=== PATIENT | female | born 1945 | race African-American/Black ===

== ENCOUNTER 2022-11-24 12:34 | Inpatient (IN) | payer BC, OTHER ==
[~2022-11-24] VITALS: Ht 160 cm; Wt 78.5 kg
[2022-11-24 15:41] LABS: BASOPHILS % 1.4 % (0.0-2.0); EOSINOPHILS % 2.9 % (0.0-5.0); HEMATOCRIT. 32.5 % (36.0-48.0); HEMOGLOBIN. 10.4 g/dL (12.0-16.0); LYMPHOCYTES % 32.6 % (20.0-50.0); MEAN CORPUSCULAR HEMOGLOBIN 23.1 pg (28.0-32.0); MEAN CORPUSCULAR VOLUME 72.2 fL (81.0-99.0); NEUTROPHILS % 51.1 % (40.0-76.0); PLATELET 397 x1000/uL (130-400); RED BLOOD CELL COUNT 4.51 mill/uL (4.2-5.4); RED CELL DISTRIBUTION WIDTH 15.5 % (11.6-14.6)
[2022-11-24 15:46] LABS: CHLORIDE 110 mEq/L (98-107)
[2022-11-24 18:51] LABS: CLARITY URINE CLEAR (CLEAR); COLOR URINE YELLOW (YELLOW); KETONES URINE NEGATIVE (NEGATIVE); LEUKOCYTE ESTERASE URINE NEGATIVE (NEGATIVE); NITRITE URINE NEGATIVE (NEGATIVE); OCCULT BLOOD URINE NEGATIVE (NEGATIVE); PH URINE 5.5 (4.5-8.0); PROTEIN URINE NEGATIVE (NEGATIVE); SPECIFIC GRAVITY URINE 1.015 (1.005-1.030); UROBILINOGEN URINE 0.2 E.U./dL (0.2-1.0)
[2022-11-24] MEDS: FUROSEMIDE 40MG/4ML VIAL IVP SCH (19:57)
[2022-11-24] MEDS: ATORVASTATIN CALCIUM 40MG TABLET PO SCH (20:20)
[2022-11-24] MEDS: HYDRALAZINE HCL 50MG TABLET PO SCH (20:20)
[2022-11-24 21:44] LABS: T4 FREE 1.5 ng/dL (0.76-1.46)
[2022-11-24] MEDS ORDERED: HYDRALAZINE HCL 50MG TABLET PO SCH (22:00)
[2022-11-25] MEDS ORDERED: LOSARTAN POTASSIUM 100 MG TABLET PO SCH (09:00)
[2022-11-25] MEDS ORDERED: FUROSEMIDE 40MG/4ML VIAL IVP SCH (09:00)
[2022-11-25] MEDS: FUROSEMIDE 40MG/4ML VIAL IVP SCH (09:04)
[2022-11-25] MEDS: HYDRALAZINE HCL 50MG TABLET PO SCH ×3 (09:04→21:38)
[2022-11-25] MEDS: LOSARTAN POTASSIUM 100 MG TABLET PO SCH (09:04)
[2022-11-25 09:30] VITALS: BP 145/87
[2022-11-25] MEDS ORDERED: DOCUSATE SODIUM 250MG CAPSULE PO PRN (09:30)
[2022-11-25] MEDS ORDERED: LACTULOSE 20G/30ML UDC PO PRN (09:30)
[2022-11-25 12:00] VITALS: BP 154/73
[2022-11-25 16:00] VITALS: BP 160/74
[2022-11-25 20:00] VITALS: BP 161/62
[2022-11-25] MEDS: ATORVASTATIN CALCIUM 40MG TABLET PO SCH (21:33)
[2022-11-26] VITALS: BP 146/59
[2022-11-26 04:00] VITALS: BP 147/63
[2022-11-26] MEDS ORDERED: HYDRALAZINE HCL 25MG TABLET PO SCH (06:00)
[2022-11-26 08:00] VITALS: BP 150/63
[2022-11-26 08:12] LABS: BASOPHILS % 1.1 % (0.0-2.0); EOSINOPHILS % 3.2 % (0.0-5.0); HEMOGLOBIN. 10.3 g/dL (12.0-16.0); LYMPHOCYTES % 25.9 % (20.0-50.0); MEAN CORPUSCULAR HEMOGLOBIN 22.3 pg (28.0-32.0); MEAN CORPUSCULAR VOLUME 71.3 fL (81.0-99.0); MEAN PLATELET VOLUME 8.4 fl (7.4-10.4); MONOCYTES % 10.7 % (2.0-8.0); NEUTROPHILS % 59.1 % (40.0-76.0); PLATELET 399 x1000/uL (130-400); RED BLOOD CELL COUNT 4.63 mill/uL (4.2-5.4); RED CELL DISTRIBUTION WIDTH 15.2 % (11.6-14.6)
[2022-11-26] MEDS: FUROSEMIDE 40MG/4ML VIAL IVP SCH (11:00)
[2022-11-26] MEDS: LOSARTAN POTASSIUM 100 MG TABLET PO SCH (11:00)
[2022-11-26 11:27] VITALS: BP 150/63
== END 2022-11-26 12:45 | disposition home or self-care (01) | DRG 291 ==
LOC: ER 12:34 → MICUSO 15:41 → EDBEDREQTM 16:33 → EDBEDREQ 16:33 → 7WST 11-25 09:27
PROVIDERS: ADMIT Internal Medicine; ATTEND Internal Medicine
DX: I13.0 Hypertensive heart and chronic kidney disease with heart failure and stage 1 through stage 4 chronic kidney disease, or unspecified chronic kidney disease (principal); I50.43 Acute on chronic combined systolic (congestive) and diastolic (congestive) heart failure; M41.9 Scoliosis, unspecified; E66.9 Obesity, unspecified; D63.8 Anemia in other chronic diseases classified elsewhere; E78.00 Pure hypercholesterolemia, unspecified; Z20.822 Contact with and (suspected) exposure to COVID-19; M17.0 Bilateral primary osteoarthritis of knee; G89.29 Other chronic pain; E78.5 Hyperlipidemia, unspecified; R26.9 Unspecified abnormalities of gait and mobility; N18.9 Chronic kidney disease, unspecified; Z90.49 Acquired absence of other specified parts of digestive tract; K59.00 Constipation, unspecified; Z87.891 Personal history of nicotine dependence; Z79.899 Other long term (current) drug therapy; Z86.61 Personal history of infections of the central nervous system; Z68.30 Body mass index [BMI] 30.0-30.9, adult
CPT/HCPCS: 36415; 71045; 71260; 72070; 72110; 73565; 80048; 80053; 81003; 83735; 83880; 84439; 84443; 84484; 85025; 93005; 93306; 93970; 99285; J1940